=== PATIENT | male | born 1995 | race Hispanic/Latino ===

== ENCOUNTER 2018-03-23 11:34 | Emergency (ER) | payer SELFPAY ==
[2018-03-23] MEDS ORDERED: SODIUM CHLORIDE 0.9% 1000ML 1,000 ML IVS ONE (12:42)
--- NOTE | 2018-03-23 12:45 | ED.PDOC ---
History of Present Illness - General Chief Complaint: GI Problem Stated Complaint: diarrhea, dizzy Time Seen by Provider: 03/23/18 12:37 Source: patient Exam Limitations: no limitations Additional Information: PT HAS HAD DIARRHEA FOR 2-3 DAYS. WATERY, NO BLOOD. NOW HAS DEVELOPED DIZZINESS AND WEAKNESS. - History of Present Illness Severity: moderate Improving Factors: nothing Worsening Factors: nothing Associated Symptoms: weakness Allergies/Adverse Reactions: Allergies NO KNOWN ALLERGY Allergy (Verified 03/23/18 12:10) Home Medications: Ambulatory Orders Ciprofloxacin [Cipro] 500 mg PO BID #20 ml 03/23/18 Review of Systems - Review of Systems Constitutional: Denies: chills, fever EENTM: States: no symptoms reported Respiratory: States: no symptoms reported Cardiology: States: no symptoms reported Gastrointestinal/Abdominal: States: abdominal pain, diarrhea. Denies: nausea, vomiting Genitourinary: States: no symptoms reported Musculoskeletal: States: no symptoms reported Skin: States: no symptoms reported Neurological: States: no symptoms reported Endocrine: States: no symptoms reported Hematologic/Lymphatic: States: no symptoms reported Past Medical History (General) - Patient Medical History Hx Stroke: No Hx Congestive Heart Failure: No Hx Diabetes: No Surgical History: no surgical history Family Medical History - Family History Mother Family History: Unknown Physical Exam - Physical Exam General Appearance: Alert, No apparent distress Eye Exam: bilateral normal Ears, Nose, Throat: hearing grossly normal, normal ENT inspection - MOIST MM Neck: non-tender, full range of motion, supple Respiratory: lungs clear, normal breath sounds Cardiovascular/Chest: regular rate, rhythm, no murmur, bradycardia Gastrointestinal/Abdominal: non tender, soft, no organomegaly, other - HYPERACTIVE BS Back Exam: normal inspection, no CVA tenderness Extremity: normal range of motion, non-tender, normal inspection Neurologic: alert Skin Exam: normal color, warm/dry Lymphatic: no adenopathy Progress - Progress Progress: 03/23/18 15:29 FEELS MUCH BETTER. VSS Departure - Departure Clinical Impression: Colitis Time of Disposition: 15:30 Disposition: Discharge to Home or Self Care Condition: Good Departure Forms: ED Discharge - Pt. Copy, Patient Portal Self Enrollment Instructions: DI for Colitis Referrals: Kylee Bejarano, CINDER BLOCK MASON [Primary Care Provider] - 1-2 Weeks Prescriptions: Ciprofloxacin [Cipro] 500 mg PO BID #20 ml Home Medications: Ambulatory Orders Ciprofloxacin [Cipro] 500 mg PO BID #20 ml 03/23/18 Additional Instructions: CLEAR LIQUIDS FOR 24 HOURS, TAKE IMMODIUM AD FOR DIARRHEA
[2018-03-23 13:13] VITALS: O2SAT 99
[2018-03-23 15:45] VITALS: BP 114/60; TEMP 98.4
== END 2018-03-23 15:44 | disposition home or self-care (01) ==
LOC: ER 11:34
DX: K52.9 Noninfective gastroenteritis and colitis, unspecified (principal)
CPT/HCPCS: 36415; 80053; 81001; 83630; 85025; 87045; 87046; 87324; 87449; J7030